=== PATIENT | male | born 1990 | race Caucasian/White ===

== ENCOUNTER 2022-05-02 14:57 | Observation (INO) | payer BC, SELFPAY ==
[2022-05-02] VITALS (17 sets, daily range): BP systolic 125–147; BP diastolic 62–94; PULSE 80–109; RESP 11–23; TEMP 36.5–36.9; O2SAT 94–100; BMI 23.8
--- NOTE | 2022-05-02 16:58 | ED.ANXIETY ---
HPI - Anxiety General Chief Complaint: Anxiety Stated Complaint: ANXIETY, DENIES SI/HI Time Seen by Provider: 05/02/22 16:43 History of Present Illness HPI narrative: 31 y/o male presents to the ER today for feelings of anxiety and panic. He says that he thinks his having alcohol withdrawals. He says that he normally drinks about 1/2 of a fifth of vodka daily. He last had a drink this morning. He says that he has been trying to quit drinking so he has been drinking smaller amounts less frequently. He reports being very anxious. He has tremors in both hands. He feels pins and needles in his arms and hands. He has had nausea and vomiting today. Reports emesis about once every couple of hours. He has mild headache. No visual or auditory hallucinations. He is awake and alert and oriented. He reports having sweats. No sweats noted right now. Related Data Allergies Allergy/AdvReac Type Severity Reaction Status Date / Time NKDA Allergy Unknown Uncoded 05/14/12 10:30 Review of Systems Constitutional: Constitutional: Denies chills, Denies fatigue and Denies fever(s) Eyes: Eyes: Denies change in vision and Denies photophobia ENT: Denies vertigo, Denies dizziness and Denies nasal congestion Cardiovascular: Cardiovascular: Denies chest pain, Denies rapid heart rate and Denies radiating jaw, neck or arm pain Respiratory: Respiratory: Denies chest congestion, Denies cough, Denies dyspnea and Denies wheezing Gastrointestinal: Gastrointestinal: Denies abdominal pain, Denies constipation, Denies diarrhea, Reports nausea and Reports vomiting Genitourinary: Genitourinary: Denies dysuria Musculoskeletal: Musculoskeletal: Denies back pain, Denies myalgias and Denies arthralgias Integumentary/Breasts: Skin/Breast: Denies rash Neurologic: Reports as per HPI Hematologic/Lymphatic: Hematologic/Lymphatic: Denies easy bleeding and Denies easy bruising PMFSH Family History Family History Sibling Family history of mental disorder Mother Depression Family history of lupus erythematosus Father Patient's father is in good health Other Diabetes mellitus Social History Social History Smoking status: Current every day smoker Alcohol intake: current Substance use type: marijuana Exam Const: General: alert; No confusion HENMT: Head: normal to inspection Eyes: Conjunctivae: conjunctivae normal Pupils: Equal, round and reactive pupils present EOM: EOMs intact bilaterally Neck: Neck: normal visual inspection Chest: Chest palpation & inspection: normal inspection of the chest Resp: Effort & Inspection: normal respiratory effort, not labored and no retractions Cardio: Rate: tachycardic Rhythm: regular rhythm GI: Auscultation: normal bowel sounds Other: Abdomen soft, non-tender Skin: General skin exam: normal color Neuro: General: patient oriented x3 and moves all extremities Speech: normal speech Other: tremors noted bilateral upper extremities Extrem: General: normal to inspection Psych: Mental Status: mental status grossly normal Course Course Emergency Course: [address] Crawford, accepting patient for admission for acute alcohol withdrawal Vital Signs Vital signs: Vital Signs Temperature 36.9 C 05/02/22 15:07 Pulse Rate 101 H 05/02/22 15:07 Respiratory Rate 20 05/02/22 15:07 Blood Pressure 147/94 H 05/02/22 15:07 Pulse Oximetry 97 05/02/22 15:07 Oxygen Delivery Room Air 05/02/22 15:07 Temperature 36.9 C 05/02/22 15:07 Pulse Rate 101 H 05/02/22 15:07 Respiratory Rate 20 05/02/22 15:07 Blood Pressure 147/94 H 05/02/22 15:07 Pulse Oximetry 97 05/02/22 15:07 Oxygen Delivery Room Air 05/02/22 15:07 MDM - Anxiety MDM Narrative Medical decision making narrative: Initial CIWA score 24 Differential Diagnosis Differential diagno
--- NOTE | 2022-05-02 17:08 | ECG_ITS ---
Measurements Intervals [place] Rate: 85 P: 82 DC: 149 QRS: 20 QRSD: 109 T: 45 QT: 392 QTc: 468 Interpretive Statements SINUS RHYTHM POSSIBLE LEFT ATRIAL ENLARGEMENT [-0.1mV P-WAVE IN V1/V2] INCOMPLETE RIGHT BUNDLE BRANCH BLOCK [90+ ms QRS DURATION, TERMINAL R IN V1/V2, 40+ ms S IN I/aVL/V4/V5/V6] NO PREVIOUS ECG AVAILABLE FOR COMPARISON Electronically Signed On 05-03-2022 9:21:45 CDT by Leyla Schneider M.D.
[2022-05-02 17:29] LABS: Basophils Absolute Auto 0.1 K/mm3 (0.0-0.1); Basophils Percent Auto 0.4 % (0.2-1.2); Hematocrit 48.9 % (42.0-52.0); Hemoglobin 17.3 g/dL (14.0-18.0); Immature Granulocyte Absolute 0.03 K/mm3 (0.00-0.031); Immature Granulocyte Percent A 0.3 % (0-0.5); Lymphocytes Absolute Auto 1.95 K/mm3 (0.9-3.2); Mean Corpuscular HGB Conc 35.4 g/dl (32-36); Mean Corpuscular Hemoglobin 34.5 pg (26-34); Mean Corpuscular Volume 97.4 fl (80-100); Mean Platelet Volume 9.9 fl (7.4-10.4); Monocytes Absolute Auto 0.8 K/mm3 (0.1-0.6); Monocytes Percent Auto 6.7 % (2.6-8.5); Neutrophils Absolute Auto 8.7 K/mm3 (1.3-6.7); Neutrophils Percent Auto 75.6 % (45.5-73.1); Platelet Count Result 337 k/mm3 (150-375); Red Blood Count 5.02 M/mm3 (4.6-6.20); Red Cell Distribution Width 12.8 % (11.5-14.5); White Blood Count 11.5 K/mm3 (4.5-10.0)
[2022-05-02] MEDS: ONDANSETRON INJ 4 MG/2 ML VIAL IV PUSH (17:33)
[2022-05-02] MEDS: LORazepam INJ (*CRX) 2 MG/ML VIAL 1 MG IV PUSH ×2 (17:33→17:58)
[2022-05-02] MEDS: SODIUM CHLORIDE 0.9% IV 1,000 ML 999 ML IV CONT ×2 (17:34→18:17)
[2022-05-02 17:42] LABS: Ethanol 139 mg/dL (<10)
[2022-05-02 17:44] LABS: Appearance Urine Clear (Clear); Bilirubin Urine 1+ (Negative); Blood Urine Trace-lysed (Negative); Color Urine Yellow (Yellow); Glucose Urine UA Negative (Negative); Ketones Urine 4+ mg/dL (Negative); Leukocyte Esterase Ur Negative LEU/UL (Negative); Nitrate Urine Negative (Negative); Protein Urine 3+ mg/dL (Negative); Specific Grav Ur >= 1.030 (1.001-1.035)
[2022-05-02 17:50] LABS: Lactic Acid Reflex 7.9 mmol/L (0.7-2.0)
[2022-05-02 17:51] LABS: Alanine Aminotransferase 157 U/L (6-50); Albumin Level 5.5 g/dL (3.5-5.1); Alkaline Phosphatase 85 U/L (38-126); Anion Gap 23 mmol/L (8-16); Aspartate Amino Transferase 111 U/L (17-59); Bilirubin,Total 1.4 mg/dL (0.2-1.3); Blood Urea Nitrogen 8 mg/dL (9-20); Calcium 9.8 mg/dL (8.4-10.2); Carbon Dioxide 17 mmol/L (22-30); Chloride 98 mmol/L (98-107); Estimated CRCL calculation 112 ml/min; Estimated Glomerular Filt Rate > 60; Glucose 94 mg/dL (65-110); Lipase 73 U/L (23-300); Magnesium 1.6 mg/dL (1.6-2.3); Potassium 3.6 mmol/L (3.4-5.0); Sodium 138 mmol/L (137-145)
[2022-05-02 17:53] LABS: Mucus Urine Moderate /lpf; Squamous Epithelial Cell Urine Rare /hpf (Few); WBC Urine 0-3 /hpf
[2022-05-02 17:55] LABS: Add Urine Microscopic? YES
[2022-05-02 17:59] LABS: Amphetamine Screen Urine Negative (Negative); Barbiturate Screen Urine Negative (Negative); Benzodiazepines Screen Urine Negative (Negative); Cannabinoid Screen Urine Positive (Negative); Cocaine Screen Urine Negative (Negative); Methadone Screen Urine Negative (Negative); Opiate Screen Urine Negative (Negative); Phencyclidine Screen Urine Negative (Negative)
--- NOTE | 2022-05-02 19:33 | PM.IMHP ---
H&P: HPI History of Present Illness Date/Time: 05/02/22 19:33 Chief Complaint: Tremors Narrative: This is a 71-year-old male with past medical history significant for alcohol dependence, tobacco dependence. Patient comes into the emergency room due to tremors, auditory hallucinations, of 1 day duration. Patient usually drinks a bottle of whiskey daily and has decided to cut back has not had a drink in about a day or so when he started having tremors and hallucinations and panic attacks. Preliminary workup was significant for a lactic acid of 7, AST and ALT in the 100 range. Patient is being admitted for further evaluation, management and treatment. Review of Systems Review of Systems: Tremors, panic attacks, auditory hallucinations. Patient quit drinking alcohol for about a day or so. Constitutional: Constitutional: Denies chills, Denies fever(s) and Denies night sweats Eyes: Eyes: Denies change in vision ENT: Denies dysphagia, Denies vertigo, Denies dizziness, Denies nasal congestion, Denies nasal discharge and Denies nasal obstruction Cardiovascular: Cardiovascular: Denies chest pain, Denies syncope, Denies pedal edema, Denies irregular heart rhythm, Denies claudication, Denies lightheadedness, Denies radiating jaw, neck or arm pain, Reports palpitations and Reports dyspnea Respiratory: Respiratory: Denies cough Gastrointestinal: Gastrointestinal: Denies abdominal pain, Denies GI cramping, Denies dyspepsia, Denies heartburn, Denies diarrhea, Denies nausea and Denies vomiting Genitourinary: Genitourinary: Denies dysuria Musculoskeletal: Musculoskeletal: Denies myalgias, Denies arthralgias, Denies joint swelling and Denies muscle weakness Integumentary/Breasts: Skin/Breast: Denies rash Neurologic: Denies focal weakness, Denies Sensory deficit (Neuro) and Reports tremor(s) Psychiatric: Psychiatric: Reports panic attacks, Denies tactile hallucinations and Reports other (Auditory hallucinations) Endocrine: Endocrine: Denies cold intolerance, Denies fatigue, Denies flushing, Denies heat intolerance, Denies polyphagia and Denies polydipsia Hematologic/Lymphatic: Hematologic/Lymphatic: Reports no additional hematologic/lymphatic complaints and Reports as per HPI Allergic/Immunologic: Allergic/Immunologic: Reports no additional allergic/immunologic complaints and Reports as per HPI [facility] Family History Family History (Updated 05/02/22 @ 22:11 by Inna Valadez RN) Sibling Family history of mental disorder Mother Depression Family history of lupus erythematosus Father Patient's father is in good health Grandparent Diabetes mellitus Social History Social History Smoking status: Current every day smoker Second hand tobacco smoke exposure: No Additional smoking assessment comments: Vapes daily Alcohol intake: current Drinks per week: 35 Substance use: current Substance use type: marijuana Other substance usage details: Daily marijuana Last use: Currently less than 1/4 pint of whiskey daily. Is trying to cut back Spiritual care concerns: No Meds Home Medications and Allergies Home Medications Medication Instructions Recorded Confirmed Type No Home Medications 05/02/22 05/02/22 History Allergies Allergy/AdvReac Type Severity Reaction Status Date / Time NKDA Allergy Unknown Uncoded 05/14/12 10:30 Vital Signs Vital Signs - 24 hr 05/02/22 15:07 Temperature 98.4 F Pulse Rate 101 H Respiratory Rate 20 Blood Pressure 147/94 H Pulse Oximetry 97 Oxygen Delivery Room Air Exam Narrative: Laying in a stretcher Const: General: cooperative, comfortable, no acute distress, well developed, alert, awake, Physically active and other (Well-appearing) Nutritional Appearance: thin Orientation/consciousness: patient oriented x3 HENMT: Head: normal to inspection, normocephalic and atraumatic Ears: hearing grossly nor
[2022-05-02] MEDS: THIAMINE HCL INJ 100 MG, FOLIC ACID INJ 1 MG, MULTIVITAMINS-12 INJ VIAL 1 5 ML, MULTIVI... 125 MG IV CONT (19:45)
[2022-05-02] MEDS: LORazepam INJ (*CRX) 2 MG/ML VIAL IV PUSH (20:26)
[2022-05-02 20:27] LABS: Reflex Lactic Acid Yes or No Add Lactic
[2022-05-02 20:32] LABS: SARS-CoV-2 RNA PCR Negative
--- NOTE | 2022-05-02 21:50 | PC.NURSE ---
This patient, Francisco Nevarez, was admitted to IMU Room 201-01 at 2143. Patient oriented to hospital policies and general routines including ID bracelet, bed and alarms, visiting hours, pain management, procedures, bathroom and other care routines, personal items, smoking policy, room service/diet, and visiting hours. Information on how to activate the Rapid Response Team has been discussed. Patient is encouraged to report perceived risks to care and to ask questions if they do not understand what they are told or what they should do.
[2022-05-02 22:28] LABS: Lactic Acid 2.1 mmol/L (0.7-2.0)
[2022-05-02 23:42] LABS: Glucose Point of Care 89 mg/dl (65-105)
[2022-05-02] MEDS: chlordiazePOXIDE (*CRX) 25 MG CAPSULE 50 MG PO (23:57)
[2022-05-03] VITALS (16 sets, daily range): BP systolic 120–139; BP diastolic 70–79; PULSE 52–98; RESP 18–20; TEMP 36.1–36.7; O2SAT 98–99
[2022-05-03] MEDS: THIAMINE HCL INJ 100 MG, FOLIC ACID INJ 1 MG, MULTIVITAMINS-12 INJ VIAL 1 5 ML, MULTIVI... IV CONT (03:45)
[2022-05-03] MEDS: chlordiazePOXIDE (*CRX) 25 MG CAPSULE 50 MG PO ×3 (05:34→17:50)
[2022-05-03] MEDS: ENOXAPARIN 40 MG/0.4 ML SYRINGE SUB-Q (08:58)
[2022-05-03] MEDS: LORazepam (*CRX) 1 MG TABLET PO (10:32)
--- NOTE | 2022-05-03 11:05 | PM.IMPN ---
Progress Note: A&P Assessment and Plan (1) Alcohol withdrawal syndrome: Code(s): F10.239 - Alcohol dependence with withdrawal, unspecified Status: Acute Assessment and Plan: Librium and Ativan as needed (2) Alcohol dependence: Code(s): F10.20 - Alcohol dependence, uncomplicated Status: Acute Assessment and Plan: Referral for 12 step program in the outpatient setting (3) Tobacco dependence: Code(s): F17.200 - Nicotine dependence, unspecified, uncomplicated Status: Acute Assessment and Plan: Nicotine patch as needed Subjective Date/time seen: 05/03/22 11:05 Feeling much better, having minimal anxiety right now. No tremors noted I spoke with them. Review of Systems Review of Systems: 10 point ROS negative except as stated in HPI / Subjective Exam Narrative: Laying in a stretcher Const: General: cooperative, comfortable, no acute distress, well developed, alert, awake, Physically active and other (Well-appearing) Nutritional Appearance: thin Orientation/consciousness: patient oriented x3 HENMT: Head: normal to inspection, normocephalic and atraumatic Ears: hearing grossly normal bilaterally Face and sinus: normal facial exam Eyes: General: appearance normal, both eyes and all related structures Pupils: Equal, round and reactive pupils present EOM: EOMs intact bilaterally Neck: Neck: full ROM, no lymphadenopathy and no JVD Thyroid: thyroid normal Lymphatic: no lymphadenopathy noted Resp: Effort & Inspection: normal respiratory effort and able to speak in complete sentences Auscultation: clear to auscultation bilaterally Cardio: Jugular venous distension: no JVD Rate: regular rate Rhythm: regular rhythm Heart sounds: S1 normal heart sound present and S2 normal heart sound present GI: Inspection: normal to inspection : General: Yes deferred Skin: Rashes: no rashes Wounds: no wounds Neuro: General: patient oriented x3 and CN's II-XI intact bilaterally Cranial nerves: Yes CN's II-XII intact bilaterally and Yes Equal, round and reactive pupils present Cognition (Neuro): normal cognition Speech: normal speech Gait exam (Neuro): Normal gait present Motor exam (neuro): 5/5 motor strength present throughout Sensory Exam: No Sensory deficit (Neuro) Extrem: General: normal to inspection, full ROM, no joint enlargement and no pedal edema Objective Data Vital Signs Vital Signs: Vital Signs - 24 hr 05/02/22 15:07 05/02/22 16:46 05/02/22 18:04 Temperature 98.4 F Pulse Rate 101 H 89 83 Respiratory Rate 20 16 15 Blood Pressure 147/94 H 136/85 Pulse Oximetry 97 100 100 Oxygen Delivery Room Air 05/02/22 18:34 05/02/22 18:45 05/02/22 19:01 Temperature Pulse Rate 96 96 96 Respiratory Rate 16 13 15 Blood Pressure 133/71 Pulse Oximetry 100 94 Oxygen Delivery 05/02/22 19:45 05/02/22 20:01 05/02/22 20:20 Temperature Pulse Rate 104 H 95 100 Respiratory Rate 14 16 23 H Blood Pressure Pulse Oximetry 97 96 97 Oxygen Delivery 05/02/22 20:30 05/02/22 20:31 05/02/22 20:45 Temperature Pulse Rate 104 H 104 H 95 Respiratory Rate 15 11 L 15 Blood Pressure 131/77 Pulse Oximetry 96 97 97 Oxygen Delivery 05/02/22 21:52 05/02/22 22:32 05/02/22 22:00 Temperature 97.7 F Pulse Rate 103 H 95 Respiratory Rate 18 Blood Pressure 128/91 H Pulse Oximetry 97 97 Oxygen Delivery Room Air 05/02/22 21:47 05/02/22 23:41 05/03/22 00:00 Temperature 98.2 F Pulse Rate 109 H 80 87 Respiratory Rate 20 Blood Pressure 125/62 Pulse Oximetry 98 Oxygen Delivery 05/03/22 00:00 05/03/22 02:00 05/03/22 03:57 Temperature 97 F L Pulse Rate 75 83 Respiratory Rate 20 Blood Pressure 120/70 Pulse Oximetry 98 99 Oxygen Delivery Room Air 05/03/22 04:00 05/03/22 04:00 05/03/22 06:00 Temperature Pulse Rate 66 94 Respiratory Rate Blood Pressure Pulse Oximetry 99 Oxygen De
[2022-05-03 12:17] LABS: Glucose Point of Care 119 mg/dl (65-105)
[2022-05-03 16:11] LABS: Glucose Point of Care 95 mg/dl (65-105)
[2022-05-04] VITALS (7 sets, daily range): BP systolic 118–129; BP diastolic 67–82; PULSE 50–97; RESP 12–20; TEMP 36.1–36.2; O2SAT 96–99
[2022-05-04] MEDS: chlordiazePOXIDE (*CRX) 25 MG CAPSULE 50 MG PO ×3 (00:20→12:06)
[2022-05-04] MEDS: ENOXAPARIN 40 MG/0.4 ML SYRINGE SUB-Q (08:26)
--- NOTE | 2022-05-04 11:57 | PM.DS ---
DS: Admitting Diagnosis Discharge Date May 04, 2022 Admitting Diagnosis Alcohol withdrawal DS: Discharge Diagnosis Discharge Diagnosis (1) Alcohol withdrawal syndrome: Code(s): F10.239 - Alcohol dependence with withdrawal, unspecified Status: Acute Assessment and Plan: Librium on discharge. (2) Alcohol dependence: Code(s): F10.20 - Alcohol dependence, uncomplicated Status: Acute Assessment and Plan: Referral for 12 step program in the outpatient setting (3) Tobacco dependence: Code(s): F17.200 - Nicotine dependence, unspecified, uncomplicated Status: Acute Assessment and Plan: Nicotine patch as needed DS: Summary Hospital Course Hospital Course: Admitted for alcohol withdrawal. No seizure noted during hospitalization. Patient is on low-dose Librium and required couple doses of Ativan. Tolerated everything well today he is feeling good wants to be discharged. No agitation no tremors. He is doing well he can be discharged home. He will be sent home on Librium. Time Spent with Patient Time attestation: Total time spent providing and/or coordinating discharge services: Exam Narrative: Laying in a stretcher Const: General: cooperative, comfortable, no acute distress, well developed, alert, awake, Physically active and other (Well-appearing) Nutritional Appearance: thin Orientation/consciousness: patient oriented x3 HENMT: Head: normal to inspection, normocephalic and atraumatic Ears: hearing grossly normal bilaterally Face and sinus: normal facial exam Eyes: General: appearance normal, both eyes and all related structures Pupils: Equal, round and reactive pupils present EOM: EOMs intact bilaterally Neck: Neck: full ROM, no lymphadenopathy and no JVD Thyroid: thyroid normal Lymphatic: no lymphadenopathy noted Resp: Effort & Inspection: normal respiratory effort and able to speak in complete sentences Auscultation: clear to auscultation bilaterally Cardio: Jugular venous distension: no JVD Rate: regular rate Rhythm: regular rhythm Heart sounds: S1 normal heart sound present and S2 normal heart sound present GI: Inspection: normal to inspection : General: Yes deferred Skin: Rashes: no rashes Wounds: no wounds Neuro: General: patient oriented x3 and CN's II-XI intact bilaterally Cranial nerves: Yes CN's II-XII intact bilaterally and Yes Equal, round and reactive pupils present Cognition (Neuro): normal cognition Speech: normal speech Gait exam (Neuro): Normal gait present Motor exam (neuro): 5/5 motor strength present throughout Sensory Exam: No Sensory deficit (Neuro) Extrem: General: normal to inspection, full ROM, no joint enlargement and no pedal edema DS: Data Data Completed and Pending Labs on day of discharge: Labs from last 24 hours 05/03/22 05/03/22 15:53 11:51 POC Capillary Glucose 95 119 H Discharge Plan Discharge Attending physician on discharge: Pradip Crawford Consulting providers: Silvino Saldivar Discharging Clinician: Pradip Crawford Patient Disposition: Home, Self-Care Activity: no preference Diet: as tolerated Patient Instructions: Antibiotic Form, Alcohol Withdrawal (DC), Alcohol Dependence (DC) Stand Alone Forms: General Discharge Information Follow-up/Referrals: Silvino Saldivar, [Physician] - Discharge Medications: New chlordiazepoxide HCl 25 mg Capsule 50 mg PO Q8-10H PRN (Reason: alcohol withdrawal) 10 Days Qty: 45 0RF Rx Instructions: titrate off over next 10 days Date of admission: 05/02/22 18:22 Primary Care Provider: PHYSICIAN,PLODDER OPERATOR Admitting Provider: Pradip Crawford Attending physician on admission: Pradip Crawford Condition: Stable
== END 2022-05-04 12:50 | disposition home or self-care (01) ==
LOC: ANHED 19:36 → ANHIMU 20:59
PROVIDERS: Admitting Provider Chiropractor; Emergency Provider Nurse Practitioner Family; Visit Provider Chiropractor
DX: F10.239 Alcohol dependence with withdrawal, unspecified (principal); F41.9 Anxiety disorder, unspecified; F17.210 Nicotine dependence, cigarettes, uncomplicated; Z20.822 Contact with and (suspected) exposure to COVID-19
CPT/HCPCS: 36415; 80053; 80307; 81001; 82948; 83605; 83690; 83735; 84100; 85025; 93005; 96361; 96365; 96366; 96372; 96375; 96376; 99285; A9270; C9803; G0378; J1650; J2060; J2405; J3411; J3475; J7030; J7042; U0003; U0005

== ENCOUNTER 2023-01-13 14:42 | Outpatient (CLI) | payer BC, SELFPAY | END 2023-01-13 14:43 | disposition home or self-care (01) | LOC: ANHSURGERY 14:49 | PROVIDERS: PCP Internal Medicine; Visit Provider Surgery | DX: Z01.818 Encounter for other preprocedural examination (principal); K40.90 Unilateral inguinal hernia, without obstruction or gangrene, not specified as recurrent | CPT/HCPCS: 36415; 86850; 86900; 86901 ==

== ENCOUNTER 2023-01-21 02:23 | Day surgery (SDC) | payer BC, SELFPAY ==
--- NOTE | 2023-01-06 09:58 | SUR.PREOP ---
Report to the Outpatient Waiting Room, entrance under the green pavilion located off [facility], at time ____0800___ on date ____01/21/2023___. Planned Procedure Time: ____999____. Time changes happen often and if your time is changed the preop area will call you the afternoon before. - You and your visitor will be asked to self-screen and do not enter if you have any COVID symptoms. - Only one visitor is requested with a max of two and NO children visitors are allowed at this time. - The patient visitor may be requested to leave or wait in car when not with patient due to distancing restrictions. - A mask is optional within the hospital at this time. Patients may have clear liquids (water, carbonated beverages, clear teas, apple juice) until 3 hours prior to surgery with a maximum of 20 ounces. - No food from midnight until time of surgery - Infants may have breast milk until 4 hours before surgery, formula 6 hours prior to surgery. - Children will be allowed to drink immediately following surgery. If applicable, please bring a bottle or sippy cup to assist with drinking. Juice, water, soda, and popsicles are readily available. For infants on formula, please bring formula the day of surgery. Pacifiers are allowed. Take the following medications with a SIP of water the morning of surgery: n/a DO NOT STOP ANY OF YOUR OTHER PRESCRIPTION MEDICATIONS PRIOR TO SURGERY ?EXCEPT THE FOLLOWING Medications to discontinue per physician stop all vitamins and suppliments 3 days prior to procedure Date to take last dose 01/18/23 Please no make-up, nail slov[place], hairspray, perfume, deodorant, or body powder the day of surgery. No jewelry (including any body piercings) or valuables the day of surgery, leave them at home. Please take a shower or bath the night before, or the morning of, surgery with an antibacterial soap. Wear comfortable, loose fitting clothing. Children are encouraged to wear pajamas. - Jewelry must be removed prior to entering the operating room. Rings and piercings that are not removed may be cut off. - The hospital will not accept responsibility for valuables. - Please leave all valuables, including medications, at home the day of surgery. If you are going home after surgery, a licensed pedicab driver must drive you home. - NO public transportation without another adult if you receive anesthesia. - We recommend that an adult stay with you for 24 hours following discharge. - We also recommend that you do not drive, make important decision, drink alcoholic beverages, or take any drugs that were not prescribed by your health care provider for at least 24 hours after your discharge time. For Pediatric surgeries, we recommend two adults accompany the child home. Follow any additional instructions given to you from your surgeon. If you or anyone in your household have experienced Covid symptoms in the past week, please notify your surgeon or the nurse liaison at the phone number below for possible testing. Telephone instructions given to isael kenny and asked if any additional questions and then verbalized understanding. Patient advised to call surgeon office or pre surgery nurse liaison [phone] if any additional questions.
[2023-01-21] VITALS (9 sets, daily range): BP systolic 110–126; BP diastolic 62–76; PULSE 52–84; RESP 12–20; TEMP 36.1–36.7; O2SAT 99–100; BMI 19.9
[2023-01-21] MEDS: ACETAMINOPHEN 500 MG TABLET 1000 MG PO (08:37)
[2023-01-21] MEDS: LACTATED RINGERS 1,000 ML 30 ML IV CONT ×2 (08:45→11:23)
[2023-01-21] MEDS: KETOROLAC 15 MG/ML VIAL (*BKC) IV PUSH (08:48)
--- NOTE | 2023-01-21 09:19 | WPDANESEPPF ---
Anes - Initial Pre Proc Eval Procedure: Operation Date: 01/21/23 10:00 Proposed Procedures p Laparoscopic Left Inguinal Hernia Repair with Mesh, Davinci Assisted - Neo Sheikh DO Date/Time: 01/21/23 09:19 Surgeon: Neo Sheikh DO Pre Op Diagnosis: Lt Ing Hernia Patient Data Age: 32 Gender: M Height: 1.88 m Weight: 70.3 kg Last Vital Signs Temp 36.7 C 01/21/23 07:57 Pulse 84 01/21/23 07:57 Resp 20 01/21/23 07:57 BP 112/75 01/21/23 07:57 Pulse Ox 99 01/21/23 07:57 O2 Del Method Room Air 01/21/23 07:57 Allergies Allergy/AdvReac Type Severity Reaction Status Date / Time No Known Allergies Allergy Verified 01/21/23 07:57 Home Medications Medication Instructions Recorded Confirmed Type arginine (L-arginine) 1 cap PO DAILY 01/06/23 01/06/23 History lecithin 1 cap PO DAILY 01/06/23 01/06/23 History Patient hx anesthesia problems: none Family hx anesthesia problems: none Results Review: All pre-operative results and documents have been reviewed as part of the pre-operative evaluation. [facility] Past Medical History Medical History Anxiety Surgical History Surgical History S/P vasectomy Family History Family History Sibling Family history of mental disorder Mother Depression Family history of lupus erythematosus Father Patient's father is in good health Grandparent Diabetes mellitus Social History Social History Smoking status: Light tobacco smoker Tobacco type: e-cigarettes/vaping Second hand tobacco smoke exposure: No Additional smoking assessment comments: Vapes daily Alcohol intake: former Drinks per week: 35 Substance use: current Substance use type: marijuana Other substance usage details: Daily marijuana Last use: Currently less than 1/4 pint of whiskey daily. Is trying to cut back Living arrangements: with family Spiritual care concerns: No Anes - Eval Final PreProcedure Day of Procedure 01/21/23 09:19 Patient weight: normal Heart: regular rate and rhythm Lungs: clear to auscultation Airway: Mallampati scale class II Neurological: alert and oriented Last oral intake: >/= 8 hours ASA classification: II Emergent: no Anesthetic plan: proceed Anesthesia type and monitoring: general ETT and standard monitoring Results Review: All pre-operative results and documents have been reviewed as part of the pre-operative evaluation. Informed Consent: The patient's anesthetic plan and its attendant risks and benefits were discussed with the patient/family/POA. Questions were solicited and answers provided to the satisfaction of the patient/family/POA.
--- NOTE | 2023-01-21 09:33 | WPDHPUPDATE1 ---
History and Physical Update Update Date/Time: 01/21/23 09:33 History and Physical has been reviewed, including an updated exam of the patient. There are NO changes in the patient's condition. Risks, benefits, and alternatives have been discussed and questions answered. Patient agrees to proceed with procedure.
--- NOTE | 2023-01-21 09:33 | PM.IMHP ---
H&P: HPI History of Present Illness Date/Time: 01/21/23 09:33 Chief Complaint: Left inguinal hernia Narrative: this is a 32-year-old man who presents for left inguinal hernia repair. He denies any changes since last seen in the office. Review of Systems Review of Systems: All systems reviewed & are unremarkable except as noted in HPI and below Constitutional: Constitutional: Denies chills, Denies fever(s), Denies headache(s) and Denies weight loss Eyes: Eyes: Denies change in vision ENT: Denies dizziness, Denies headache(s), Denies neck mass and Denies throat swelling Cardiovascular: Cardiovascular: Denies chest pain, Denies lightheadedness and Denies dyspnea Respiratory: Respiratory: Denies cough, Denies dyspnea and Denies wheezing Gastrointestinal: Gastrointestinal: Denies abdominal pain, Denies change in bowel habits, Denies nausea and Denies vomiting Genitourinary: Genitourinary: Denies hematuria and Denies dysuria Musculoskeletal: Musculoskeletal: Reports as per HPI Integumentary/Breasts: Skin/Breast: Reports as per HPI Neurologic: Denies dizziness and Denies headache(s) Allergic/Immunologic: Allergic/Immunologic: Denies throat swelling and Denies wheezing PMFSH Past Medical History Medical History Anxiety Surgical History Surgical History S/P vasectomy Family History Family History Sibling Family history of mental disorder Mother Depression Family history of lupus erythematosus Father Patient's father is in good health Grandparent Diabetes mellitus Social History Social History Smoking status: Light tobacco smoker Tobacco type: e-cigarettes/vaping Second hand tobacco smoke exposure: No Additional smoking assessment comments: Vapes daily Alcohol intake: former Drinks per week: 35 Substance use: current Substance use type: marijuana Other substance usage details: Daily marijuana Last use: Currently less than 1/4 pint of whiskey daily. Is trying to cut back Living arrangements: with family Spiritual care concerns: No Meds Home Medications and Allergies Home Medications Medication Instructions Recorded Confirmed Type arginine (L-arginine) 1 cap PO DAILY 01/06/23 01/06/23 History lecithin 1 cap PO DAILY 01/06/23 01/06/23 History Allergies Allergy/AdvReac Type Severity Reaction Status Date / Time No Known Allergies Allergy Verified 01/21/23 07:57 Vital Signs Vital Signs - 24 hr 01/21/23 07:57 01/21/23 07:57 Temperature 36.7 C 36.7 C Pulse Rate 84 84 Respiratory Rate 20 20 Blood Pressure 112/75 112/75 Pulse Oximetry 99 99 Oxygen Delivery Room Air Room Air Exam Const: General: no acute distress and alert Orientation/consciousness: patient oriented x3 HENMT: Head: normocephalic and atraumatic Ears: hearing grossly normal bilaterally Face/Nose/Sinus: Normal nares present Mouth: Yes Normal oral and palatal mucosa present Eyes: Periorbital: periorbital findings normal Sclera: sclerae normal EOM: EOMs intact bilaterally Neck: Neck: normal visual inspection, no lymphadenopathy and trachea midline Chest: Chest palpation & inspection: normal inspection of the chest Resp: Effort & Inspection: normal respiratory effort Auscultation: clear to auscultation bilaterally Cardio: Jugular venous distension: no JVD Rate: regular rate Rhythm: regular rhythm Heart sounds: S1 normal heart sound present and S2 normal heart sound present Peripheral pulses: Peripheral pulses 2+ throughout GI: Inspection: normal to inspection GI Palp: Yes Soft to palpation, No Tenderness to palpation present (GI), No Guarding due to palpation present (GI) and No Rebound tenderness present Percussion: Yes normal to percussion Auscultation: ita
[2023-01-21] MEDS: ceFAZolin 2 GM/D5W 50 ML 2 GM/50 ML BAG IVPB (10:00)
[2023-01-21] MEDS: BUPIVACAINE/EPINEPHRINE 0.5% 10 ML VIAL 30 ML INFILTRATE (10:22)
--- NOTE | 2023-01-21 11:08 | W.PM.PROC2 ---
Procedure Note - Detailed Date of Procedure 01/21/23 Pre-op Diagnosis Left inguinal hernia Post-op Diagnosis Same (Direct LIH) Procedure Performed Laparoscopic left inguinal hernia repair with mesh, da Russell assisted Surgeon Neo Sheikh, Anesthesia General and Local (0.5% bupivacaine with epinephrine) Indications This is a 32-year-old man who presented with a left groin bulge that he noticed about 10 months ago. He denied any significant pain associated with this the bulge had gotten larger over time. He was found to have a reducible left inguinal hernia on physical exam. Discussions were made with the patient about treatment options and decision was made to proceed with robotic assisted laparoscopic left inguinal hernia repair with mesh. Findings Laparoscopic left inguinal hernia repair was performed. The patient was found to have a small direct left inguinal hernia. There was no evidence of a right inguinal hernia. A robotic transabdominal preperitoneal approach was utilized for repair. Once a wide enough preperitoneal pocket was created, a large left 3DMax mid mesh was placed overlying the entire left myopectineal orifice. Description of Procedure Procedure as well as risks, benefits, and alternatives were discussed with the patient. Written consent was obtained and placed in chart prior to procedure. Patient was brought back to surgical suite. He was placed supine on operating table. Time-out was done to confirm patient and procedure. He was then intubated by Anesthesia Department. His abdomen was prepped and draped in sterile fashion using chlorhexidine prep. 0.5% bupivacaine with epinephrine was infiltrated at each location for incision. A 12 millimeter transverse incision was made just superior to the umbilicus using a 15 blade scalpel. Blunt dissection was carried out down to the linea alba. A vertical incision was made at the linea alba using a 15 blade scalpel. The peritoneum was then bluntly entered. A 12 millimeter trocar was inserted and carbon dioxide insufflation was used to create a pneumoperitoneum. A camera was inserted and the abdominal cavity was inspected. The patient was placed in slight Trendelenburg position. An 8 millimeter incision was made on the right lateral abdomen and an 8 millimeter trocar was inserted under direct visualization. Another 8 millimeter incision was made in the left lateral abdomen and an 8 millimeter trocar was inserted under direct visualization. The robotic arms were brought up to the patient's bedside and secured to the ports. The camera and instruments were inserted. I then moved over to the robotic console and took control of the camera and instruments. After careful inspection of the abdominal cavity, I began scoring the peritoneum along the left lower quadrant using scissors with electrocautery. The preperitoneal plane was entered and this was carefully dissected caudally along the inferior epigastric vessels. Careful dissection with scissors with electrocautery and blunt dissection was used to continue this dissection. I dissected far enough laterally to allow for mesh placement, and also dissected medially to identify the pubic arch and Omid's ligament. The hernia sac was identified and carefully dissected posteriorly. The cord contents were also identified and the peritoneum was carefully dissected far enough posteriorly to allow for mesh placement. Once an adequate pocket was created, I then placed the mesh within the preperitoneal pocket and carefully unfolded it. The mesh was centered on the hernia defect with adequate overlap circumferentially. The inferior edge of the mesh was inspected to ensure that it was far enough away from the peritoneal edge. The mesh appeared in proper position overlying the entire myopectineal orifice. The mesh was secured using 3-0 Vicryl simple interrupted sutures in Omid's ligament, the superior medial edge, and superior lateral edge of
[2023-01-21] MEDS: fentaNYL CITRATE INJ (*CRX) 100 MCG/2 ML VIAL 25 MCG IV PUSH ×2 (11:57→12:01)
== END 2023-01-21 13:28 | disposition home or self-care (01) ==
PROVIDERS: PCP Internal Medicine; Visit Provider Surgery
PROC: 8E0Y4CZ Robotic Assisted Procedure of Lower Extremity, Percutaneous Endoscopic Approach (ICD-10-PCS; CPT 49650; principal; 2023-01-21 10:00)
DX: K40.90 Unilateral inguinal hernia, without obstruction or gangrene, not specified as recurrent (principal); F17.290 Nicotine dependence, other tobacco product, uncomplicated; F12.90 Cannabis use, unspecified, uncomplicated
CPT/HCPCS: 49650; S2900; 36415; 86850; 86900; 86901; A9270; C1781; J0690; J1100; J1170; J1885; J2250; J2405; J2704; J2710; J3010; J7120